=== PATIENT | female | born 1980 | race Caucasian/White ===

== ENCOUNTER 2017-01-16 14:04 | Emergency (ER) | payer OTHER ==
[~2017-01-16] VITALS: Ht 165.1 cm; Wt 59.0 kg
[~2017-01-16 14:04] MED LIST: DESV50TE PO; IBUPROFEN PRN PAIN
[2017-01-16 14:11] VITALS: BP 129/95
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
--- NOTE | 2017-01-16 14:29 | NUR ---
[place] with patient
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
[2017-01-16] MEDS ORDERED: SUMAtriptan 6 MG/0.5 ML VIAL SUBQ ONE (14:55)
[2017-01-16] MEDS ORDERED: KETOROLAC 30 MG/ML VIAL IM ONE (14:55)
--- NOTE | 2017-01-16 15:02 | NUR ---
PATIENT TO BED 3 A THIS TIME.
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
--- NOTE | 2017-01-16 15:17 | NUR ---
PT TAKEN OFF THE UNIT VIA WHEEL CHAIR BY ARCHITECTURE DEPARTMENT CHAIRSTEPHANIE MCKINLEY FOR CT OF THE HEAD
[2017-01-16 16:34] VITALS: BP 118/88
--- NOTE | 2017-01-16 16:34 | NUR ---
Patient discharged with v/s stable. Written and verbal after care instructions given and explained. Patient verbalized understanding. Ambulatory with steady gait. All questions addressed prior to discharge. Advised to follow up with PMD.
== END 2017-01-16 16:34 | disposition home or self-care (01) ==
LOC: MED 14:04
DX: S50.02XA Contusion of left elbow, initial encounter (principal); S00.83XA Contusion of other part of head, initial encounter; G43.909 Migraine, unspecified, not intractable, without status migrainosus; Y08.89XA Assault by other specified means, initial encounter
CPT/HCPCS: 70450; 96372; 99284; J1885; J3030